=== PATIENT | female | born 1955 | race Caucasian/White ===

== ENCOUNTER 2022-05-08 08:06 | Outpatient (CLI) | payer MEDICARE, BC | END 2022-05-08 08:07 | disposition home or self-care (01) | LOC: CSHMAMMO 08:06 | PROVIDERS: ATTEND Obstetrics & Gynecology | DX: Z12.31 Encounter for screening mammogram for malignant neoplasm of breast (principal) | CPT/HCPCS: 77063; 77067 ==

== ENCOUNTER 2022-08-31 15:33 | Outpatient (CLI) | payer MEDICARE, BC | END 2022-08-31 15:34 | disposition home or self-care (01) | LOC: CSHRAD 15:33 | PROVIDERS: ATTEND Otolaryngology Otolaryngic Allergy | DX: R05.9 Cough, unspecified (principal); K44.9 Diaphragmatic hernia without obstruction or gangrene | CPT/HCPCS: 71046 ==

== ENCOUNTER 2022-09-07 09:55 | Outpatient (CLI) | payer MEDICARE, BC ==
[~2022-09-07 09:55] MED LIST: Iopamidol 300 61% 100 ML VIAL FS ONE
== END 2022-09-07 09:56 | disposition home or self-care (01) ==
LOC: CSHCT 09:55
PROVIDERS: ATTEND Otolaryngology Plastic Surgery within the Head & Neck
DX: K44.9 Diaphragmatic hernia without obstruction or gangrene (principal)
CPT/HCPCS: 71260; 74160; 82565; Q9967

== ENCOUNTER 2023-12-11 10:23 | Outpatient (CLI) | payer MEDICARE, BC | END 2023-12-11 10:24 | disposition home or self-care (01) | LOC: CSHRAD 10:23 | PROVIDERS: ATTEND Family Medicine Sports Medicine | DX: M25.552 Pain in left hip (principal); M46.1 Sacroiliitis, not elsewhere classified ==

== ENCOUNTER 2024-05-27 09:37 | Outpatient (CLI) | payer MEDICARE, BC | END 2024-05-27 09:38 | disposition home or self-care (01) | LOC: CSHMAMMO 09:37 | PROVIDERS: ATTEND Obstetrics & Gynecology | DX: Z12.31 Encounter for screening mammogram for malignant neoplasm of breast (principal); M85.89 Other specified disorders of bone density and structure, multiple sites; Z78.0 Asymptomatic menopausal state | CPT/HCPCS: 77063; 77067; 77080 ==